=== PATIENT | female | born 1965 ===

== ENCOUNTER 2016-06-10 14:59 | Outpatient (CLI) | payer BC | END 2016-06-10 15:00 | disposition home or self-care (01) | LOC: LABHHL 14:59 | PROVIDERS: ATTEND Internal Medicine Gastroenterology | DX: Z12.11 Encounter for screening for malignant neoplasm of colon (principal); K21.9 Gastro-esophageal reflux disease without esophagitis; R10.11 Right upper quadrant pain; R14.0 Abdominal distension (gaseous); K30 Functional dyspepsia; R11.2 Nausea with vomiting, unspecified; R19.7 Diarrhea, unspecified; K29.50 Unspecified chronic gastritis without bleeding | CPT/HCPCS: 88305; 88342 ==